=== PATIENT | female | born 1990 | race Caucasian/White ===

== ENCOUNTER 2021-07-29 21:12 | Emergency (ER) | payer OTHER ==
[~2021-07-29] VITALS: Ht 167.6 cm; Wt 87.3 kg
[2021-07-30] MEDS ORDERED: ACETAMINOPHEN 500 MG TABLET PO ONE (00:30)
[2021-07-30 00:55] VITALS: BP 129/75
== END 2021-07-30 04:49 | disposition home or self-care (01) ==
LOC: EMS 21:15
DX: S82.145A Nondisplaced bicondylar fracture of left tibia, initial encounter for closed fracture (principal); W17.89XA Other fall from one level to another, initial encounter; Y93.89 Activity, other specified; Y92.89 Other specified places as the place of occurrence of the external cause; Y99.8 Other external cause status
CPT/HCPCS: 29505; 99283